=== PATIENT | male | born 1990 | race Caucasian/White ===

== ENCOUNTER → 2016-08-30 | Outpatient (CLI) | payer OTHER ==
[~2016-08-30] MED LIST: E-Z-GAS II EFFERVESCENT PACKET (SODIUM BICARB./CITRIC ACID/SIMETHICONE) As Ordered ONE; E-Z-HD 98% w/w 340GM SUSP BTL As Ordered ONE; E-Z-PAQUE 96% w/w SUSP 176GM BTL As Ordered ONE
--- NOTE | 2016-08-30 09:52 | REP ---
DOUBLE CONTRAST UPPER GI SERIES: HISTORY: Epigastric pain and 35-pound weight loss. Question peptic ulcer disease. 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 Psoas margins and flank stripes are intact. There is air and stool in a nondistended colon. Double contrast upper GI shows normal esophagus and gastroesophageal junction. There is free gastroesophageal reflux observed with the patient recumbent filling the esophagus to the thoracic inlet. No hiatal hernia is seen. The stomach displays normal rugal folds and a normal mucosal pattern. Pylorus is smooth. Duodenal bulb was fully distensible and clear. C-loop is and ligament of Treitz are unremarkable. IMPRESSION: Gastroesophageal reflux otherwise negative double contrast upper GI series. Signed by Justyn Kelly MD 08/30/2016 01:18 P
== END ==
LOC: M RAD 08:32
PROVIDERS: ATTEND Family Medicine
DX: R10.13 Epigastric pain (principal); K21.9 Gastro-esophageal reflux disease without esophagitis

== ENCOUNTER → 2017-08-22 | Outpatient (REF) | payer OTHER | LOC: M LAB REF 11:30 | DX: J11.1 Influenza due to unidentified influenza virus with other respiratory manifestations (principal); M79.7 Fibromyalgia | CPT/HCPCS: 87633 ==

== ENCOUNTER → 2018-05-28 | Outpatient (REF) | payer OTHER | LOC: M LAB REF 10:07 | DX: R19.7 Diarrhea, unspecified (principal) ==

== ENCOUNTER → 2019-07-02 | Outpatient (CLI) | payer OTHER ==
[2019-07-02 10:50] LABS: HEMATOCRIT 46.9 % (42.0-52.0); HEMOGLOBIN 15.8 g/dl (13.5-17.5); MEAN CORPUSCULAR HEMOGLOBIN 30.3 pg (27.0-33.0); MEAN CORPUSCULAR HGB CONC 33.7 g/dl (32.0-36.5); PLATELET COUNT, AUTOMATED 314 10^3/uL (150-450); RED BLOOD COUNT 5.21 10^6/uL (4.30-6.10); WHITE BLOOD COUNT 11.8 10^3/uL (4.0-10.0)
[2019-07-02 11:14] LABS: HEMOGLOBIN A1c 5.9 %
[2019-07-02 11:27] LABS: ALBUMIN 3.8 GM/DL (3.2-5.2); ALT/SGPT 20 U/L (12-78); BILIRUBIN,TOTAL 0.4 MG/DL (0.2-1.0); BLOOD UREA NITROGEN 9 MG/DL (7-18); CALCIUM LEVEL 9.2 MG/DL (8.5-10.1); CARBON DIOXIDE LEVEL 29 MEQ/L (21-32); CHLORIDE LEVEL 106 MEQ/L (98-107); CHOLESTEROL LEVEL 166 MG/DL (<200); CREATININE FOR GFR 0.93 MG/DL (0.70-1.30); GLOMERULAR FILTRATION RATE > 60.0 (>60); GLUCOSE, FASTING 86 MG/DL (70-100); HDL CHOLESTEROL 50 MG/DL (>40); LDL CHOLESTEROL 100 MG/DL (<100); NON-HDL-C 116 MG/DL; POTASSIUM SERUM 5.1 MEQ/L (3.5-5.1); SODIUM LEVEL 140 MEQ/L (136-145); THYROID STIMULATING HORMONE 0.765 uIU/ML (0.358-3.740); TOTAL PROTEIN 7.1 GM/DL (6.4-8.2); TRIGLYCERIDES LEVEL 80 MG/DL (<150)
[2019-07-02 11:30] LABS: ERYTHROCYTE SEDIMENTATION RATE 1 mm/hr (0-15)
== END ==
LOC: M LAB 09:59
PROVIDERS: ATTEND Family Medicine
DX: D64.9 Anemia, unspecified (principal); R53.83 Other fatigue; E03.9 Hypothyroidism, unspecified

== ENCOUNTER → 2020-06-23 | Outpatient (CLI) | payer OTHER | LOC: M LAB 16:31 | PROVIDERS: ATTEND Obstetrics & Gynecology | DX: Z13.79 Encounter for other screening for genetic and chromosomal anomalies (principal); Z83.6 Family history of other diseases of the respiratory system ==

== ENCOUNTER 2020-12-28 16:06 | Emergency (ER) | payer OTHER ==
[~2020-12-28] VITALS: Ht 185.4 cm; Wt 81.8 kg
[2020-12-28 16:06] VITALS: BP 133/77
== END 2020-12-28 16:23 | disposition left against medical advice (07) ==
LOC: M ED 16:06
DX: Z53.21 Procedure and treatment not carried out due to patient leaving prior to being seen by health care provider (principal)

== ENCOUNTER → 2021-08-18 | Outpatient (CLI) | payer OTHER | LOC: M LABSMTC 13:56 | PROVIDERS: ATTEND Pediatrics | DX: Z20.822 Contact with and (suspected) exposure to COVID-19 (principal) ==

== ENCOUNTER → 2025-04-08 | Outpatient (CLI) | payer OTHER | LOC: M WUC 12:17 | PROVIDERS: ATTEND Nurse Practitioner Family | DX: M25.522 Pain in left elbow (principal); M79.672 Pain in left foot ==